=== PATIENT | female | born 1945 | race Caucasian/White ===

== ENCOUNTER 2017-01-01 17:27 | Emergency (ER) | payer MEDICARE, OTHER ==
[~2017-01-01 17:27] MED LIST: ASAB PO; FOSAMAX35 MG PO; LIOR10 PO; PRILOSEC40 MG PO; SYN112 PO; TRAZ50 PO
== END 2017-01-01 20:26 | disposition home or self-care (01) ==
LOC: ER 17:27
DX: M54.32 Sciatica, left side (principal); Z79.82 Long term (current) use of aspirin; Z79.899 Other long term (current) drug therapy
CPT/HCPCS: 99284